=== PATIENT | female | born 1950 | race Caucasian/White ===

== ENCOUNTER → 2016-09-22 | Outpatient (CLI) | payer BC ==
[~2016-09-22] MED LIST: AMLO-110 PO; ASPI325T45 PO; BENADRYL PO; CRANPOW PO; CYAN1LOZ PO; FENO145T26 PO; FISHOIL PO; FURO-85 PO; GLIP2.5T5 PO; HYDR-3124 PO; INSDGI SC; LOSA25TA18 PO; METO50TA16 PO; MOME50SP5 NAE; TRAM-10 PO; VITAMIN C PO; ZNTT/150 PO; ZOLP5TAB PO; [UNRECOGNIZED DRUG - OTHER] PO; [UNRECOGNIZED DRUG - OTHER] PO
--- NOTE | 2016-09-22 15:48 | MAMMOGRAPHY REPORT ---
BILATERAL DIGITAL SCREENING MAMMOGRAM WITH CAD: 09/22/2016 CLINICAL HISTORY: Routine screening. Patient has no complaints. TECHNIQUE: Bilateral CC and MLO views were obtained. Current study was also evaluated with a Comput er Aided Detection (CAD) system. COMPARISON: Comparison is made to exams dated: 09/18/2015 mammogram, 09/27/2014 ultrasound, 09/27/2014 mammogram, 09/14/2014 mammogram, 09/13/2013 mammogram, and 09/08/2011 mammogram - [facility]. BREAST COMPOSITION: There are scattered areas of fibroglandular density in both breasts. FINDINGS: There are a few benign-appearing calcifications in the breasts. No suspicious mass, archi tectural distortion or cluster of microcalcifications is seen. IMPRESSION: ACR BI-RADS CATEGORY 1: NEGATIVE There is no mammographic evidence of malignancy. A 1 year screening mammogram is recommended. The p atient will receive written notification of the results. Approximately 10% of breast cancers are not detected with mammography. A negative mammographic repor t should not delay biopsy if a clinically suggestive mass is present. Miriam Burt M.D. ay/:09/22/2016 15:04:16 Residential Installer: Angelica Duran, [facility] letter sent: Normal 1/2 BI-RADS Code: ACR BI-RADS Category 1: Negative
== END | disposition home or self-care (01) ==
LOC: C.MAMM 09:40
PROVIDERS: ATTEND Family Medicine
DX: Z12.31 Encounter for screening mammogram for malignant neoplasm of breast (principal)

== ENCOUNTER → 2017-09-24 | Outpatient (CLI) | payer BC ==
[~2017-09-24] MED LIST changes: +ASPECOTC PO; -ASPI325T45 PO; +RANI150T85 PO; -ZNTT/150 PO
--- NOTE | 2017-09-24 15:33 | MAMMOGRAPHY REPORT ---
BILATERAL DIGITAL SCREENING MAMMOGRAM TOMOSYNTHESIS WITH CAD: 09/24/2017 CLINICAL HISTORY: Routine screening. Patient has no complaints. TECHNIQUE: Breast tomosynthesis in addition to standard 2D mammography was performed. Current study was also evaluated with a Computer Aided Detection (CAD) system. COMPARISON: Comparison is made to exams dated: 09/22/2016 mammogram, 09/18/2015 mammogram, 09/14/2014 ma mmogram, 09/13/2013 mammogram, 09/09/2012 mammogram, and 09/08/2011 mammogram - [facility]. BREAST COMPOSITION: There are scattered areas of fibroglandular density in both breasts. FINDINGS: No suspicious masses, calcifications, or areas of architectural distortion are noted in ei ther breast. There has been no significant interval change compared to prior exams. IMPRESSION: ACR BI-RADS CATEGORY 1: NEGATIVE There is no mammographic evidence of malignancy. A 1 year screening mammogram is recommended. The pa tient will receive written notification of the results. Approximately 10% of breast cancers are not detected with mammography. A negative mammographic report should not delay biopsy if a clinically suggestive mass is present. Annika Jarrett M.D. ah/:09/24/2017 10:43:43 Digestion Operator: Cris SANDOVAL)(Ale), [facility] letter sent: Normal 1/2 BI-RADS Code: ACR BI-RADS Category 1: Negative
== END | disposition home or self-care (01) ==
LOC: C.MAMM 10:09
PROVIDERS: ATTEND Family Medicine
DX: Z12.31 Encounter for screening mammogram for malignant neoplasm of breast (principal)

== ENCOUNTER 2024-03-18 11:47 | Inpatient (IN) ==
[2024-03-18 12:30] LABS: Appearance Urine Clear (Clear); Bacteria Urine Automated None Seen (None Seen); Bilirubin Urine Negative (Negative); Blood Urine Negative (Negative); Cast Urine Automated 0-2 /lpf (0-2); Color Urine Yellow; Epithelial Cell Urine Auto 0-2 /hpf (0-2); Glucose Urine UA Negative (Negative); Ketones Urine Negative (Negative); Leukocyte Esterase Urine Trace (Negative); Nitrite Urine Negative (Negative); Protein Urine 1+ (Negative); RBC Urine Automated 0-2 /hpf (0-2); Specific Gravity Urine 1.009 (1.000-1.030); Urobilinogen Urine Negative (Negative); WBC Urine Automated 0-5 /hpf (0-5)
[2024-03-18 12:31] LABS: Basophils # (auto) 0.06 K/uL (0.00-0.20); Basophils % (auto) 0.7 %; Eosinophils # (auto) 0.28 K/uL (0.00-0.50); Eosinophils % (auto) 3.2 %; Hematocrit (blood only) 33.4 % (37.0-47.0); Hemoglobin 11.6 g/dl (12.0-16.0); Immature Granulocytes # (auto) 0.06 K/uL (0.01-0.20); Immature Granulocytes % (auto) 0.7 %; Lymphocytes # (auto) 1.16 K/uL (1.20-3.40); Lymphocytes % (auto) 13.2 %; Mean Corpuscular Hemoglobin 30.1 pg (25.0-34.0); Mean Corpuscular Hgb Conc 34.7 g/dL (32.0-36.0); Mean Corpuscular Volume 86.8 fL (80.0-100.0); Mean Platelet Volume 9.3 fL (9.4-12.4); Monocytes # (auto) 0.73 K/uL (0.11-0.59); Monocytes % (auto) 8.3 %; Neutrophils % (auto) 73.9 %; Platelet Count 269 K/uL (130-400); RDW Coefficient of Variation 12.3 % (11.5-14.5); RDW Standard Deviation 39.1 fL (36.4-46.3); Red Blood Count 3.85 M/uL (4.20-5.40); White Blood Count 8.79 K/ul (4.8-10.8)
[2024-03-18 12:51] LABS: BUN Creatinine Ratio 13.1 (10-20); Calcium 9.5 mg/dl (8.6-10.3); Creatinine Clr Calc Pharmacy 33.1 ml/min; Potassium 3.7 mmol/L (3.5-5.1)
[2024-03-18 12:59] LABS: Magnesium 1.7 mg/dl (1.7-2.4)
--- NOTE | 2024-03-18 13:16 | History & Physical Report ---
Date of Service March 18, 2024 Assessment & Plan (1) Hyponatremia: Plan: Patient with NA of 123 likely secondary to chlorthalidone use, increased activity, and diarrhea - With muscle cramps and shakiness - with decreased chloride, not hyperglycemic - hypovolemic; clinically dry - CK elevated 505 - Serum osmol 263, Urine NA 37, Urine Osmol 229 - indicating hypotonic hyponatremia - given 500 mL bolus of NSS on admission - hold Lasix and will likely discontinue chlorthalidone on discharge - promote oral hydration - Repeat BMP in 4 hrs, trend daily - AM cortisol and TSH (2) UTI (urinary tract infection): Plan: diagnosed in ER 03/17; patient already on Keflex for sinus infection - UA showed 1+ protein, 2+ leukocyte esterase, 6-10 WBC 03/17; repeat showed no WBC likely secondary to abx use - urine culture pending - asymptomatic - continue with Keflex x 7 days (already 3 days taken) (3) Elevated creatine kinase: Plan: mild rhabdomyolysis likely secondary to increased activity and electrolyte abnormalities - mildly elevated at 505 on admission with recent muscle cramps - is on pravastatin although terminal worker use; held on admission - will likely improve with electrolyte repletion - repeat CK in AM (4) Acute kidney injury: Plan: likely secondary to UTI vs recent addition of chlorthalidone on Thursday vs dehydration - Patient stated she has stage III CKD with a baseline creatinine of 1.6, although no record of this - Cr 1.53 on admission - FENa 0.8% = prerenal; likely caused by dehydration - trend BMP - Hold nephrotoxic agents along with lasix and chlorthalidone - Patient is clinically dry with hyponatremia, IV fluid resuscitation as above - continue to promote oral hydration hypokalemia: K+ 3.7 -> 40 meq PO ordered on admission hypomagnesemia: 1.7 -> 400 mg PO on admission, continue daily 500mg supplement (5) Diabetes type 2, controlled: Plan: Controlled on glipizide, metformin, and 9 units Lantus Qam at home - no A1c on file, will add to Am labs - hold metformin-glipizide - SSI with target BSG range 110-140mg/dL, CF 30, carb ratio 10 - continue home Lantus 9 units QAM - T2DM diet (6) Hypertension: Plan: slightly elevated on admission although stable - continue home medications - losartan, metoprolol, and amlodipine - with holding home diuretics, may need to increase home medications if BP remains elevated Plan Chronic stable diagnoses: Hypothyroidism - continue levothyroxine, no TSH on file, will add to AM labs HLD - continue home statin B12 deficiency - continue home supplement sleep disorder - continue home Ambien GERD - continue famotidine VTE ppx: teds and scds Diet: DM diet Code status: full Dispo: Med/surg; PT/OT to evaluate given weakness Admission and Anticipated Discharge Date Admission Date: 03/18/24 History of Present Illness Chief Complaint: weakness Primary Care Provider: Kristen Meléndez DO patient is a 73-year-old female with a past medical history of hypertension, hyperlipidemia, type II DM, GERD, hypothyroidism, B12 deficiency, ckd. She left AMA from the ER yesterday after being diagnosed with hyponatremia and a UTI. She presents back this morning due to weakness and muscle spasms that made her unable to walk. Patient stated that 2 nights ago she woke up in the [place] sweaty, shaky, and her legs felt like rubber. She crawled to the bathroom and sat there for about 30 minutes. She said her legs were cramping this entire time. She then came to the ER, was evaluated, diagnosed with UTI and hyponatremia. She left AMA at this time. She stated she drank Gatorade throughout the evening and was feeling much better when she went to bed. Last night she woke up again with shakiness and muscle cramping. She again had to crawl to the bathroom and sat there for about 30 minutes in which she then returned back to the ER. She stated that she takes Lasix 20 mg daily and recently had an addition of chlorthalidone 12.5 mg daily, that she started on Thursday. She held that this morning because she thought it was contributing to her hyponatremia. She has been up and moving around more this week with her fridge breaking. She stated she has been on her feet for about 8 hours carrying garbage bags in and out of the house. She is supposed to drink water with electrolytes in it, but has not this week. She drinks 40 to 60 ounces of water a day. She stated she has had low sodium 2 times in the past, but they were over the summer when she was active and doing things outside, her symptoms were not as severe. She stated that she does not feel like she has UTI, she has chronic UTIs and normally has dysuria, difficulty urinating, and increase in urination. She denies all of the symptoms today. She was taking Keflex for the past 3 days due to a sinus infection, although this was also prescribed for her UTI yesterday. The Keflex has also caused her to have some diarrhea for the past 2 days. She states she has 2-3 episodes a day x 2 days. She follows with cardiology and nephrology through [facility], but her PCP is [facility]. She stated that she has stage III CKD, no history of CHF. She does have chronic lower leg edema in which she wears compression socks. She stated she recently had an echo with cardiology that was normal. Patient denies dizziness, lightheadedness, vision changes, rhinorrhea, sore throat, cough, sputum production, dyspnea, dyspnea on exertion, chest pain, abdominal pain, nausea, vomiting, dysuria, hematuria, numbness, tingling. She denies nicotine and alcohol use. She denies past history of CVA, VTE, and lung disorders. She does not use oxygen at baseline. She wishes to be full code at this time. She lives at home alone, but gets around okay. The patient was discussed with Dr. Weber at the time of the admission/consult. Allergies Allergy/AdvReac Type Severity Reaction Status Date / Time niacin Allergy Intermediate ITCHING Verified 06/03/23 09:48 lisinopril AdvReac Intermediate PERSISTENT Verified 06/03/23 09:48 COUGH oxycodone AdvReac Intermediate NAUSEA/VOMI Verified 06/03/23 09:48 TING Home Medications Medication Instructions Recorded Confirmed Type amlodipine 2.5 mg tablet 2.5 mg PO DAILY #0 tabs 07/31/12 03/18/24 History furosemide 20 mg tablet 20 mg PO DAILY ##0 07/31/12 03/18/24 History glipizide 5 mg-metformin 500 mg 2 tabs PO BID ##0 07/31/12 03/18/24 History tablet losartan 50 mg tablet 50 mg PO DAILY #0 tabs 07/31/12 03/18/24 History tramadol 50 mg tablet 50 mg PO Q8 PRN Pain #0 tabs 07/31/12 03/18/24 History zolpidem 5 mg tablet (Ambien) 5 mg PO HS #0 tabs 07/31/12 03/18/24 History cyanocobalamin (vitamin B-12) 1,000 mcg PO DAILY ##0 11/25/12 03/18/24 History CRANBERRY 1 cap PO BID ##0 05/31/13 03/18/24 History Fish Oil 1,000 mg PO DAILY ##0 05/31/13 03/18/24 History Vitamin C 1 tab PO UD ##0 05/31/13 03/18/24 History cephalexin 500 mg capsule 500 mg PO BID 7 days #14 caps 03/17/24 03/18/24 Rx Aspir-81 81 mg PO HS 03/18/24 03/18/24 History carvedilol 3.125 mg tablet 3.125 mg PO BID 03/18/24 03/18/24 History chlorthalidone 25 mg tablet 12.5 mg PO QAM 03/18/24 03/18/24 History cholecalciferol (vitamin D3) 50 50 mcg PO QAM 03/18/24 03/18/24 History mcg (2,000 unit) capsule (Vitamin D3) clobetasol 0.05 % topical cream 1 applic topical .2X WEEK 03/18/24 03/18/24 History famotidine 20 mg tablet 20 mg PO QAM 03/18/24 03/18/24 History fexofenadine 180 mg tablet 180 mg PO DAILY 03/18/24 03/18/24 History fluticasone propionate 50 1 spray intranasal BID 03/18/24 03/18/24 History mcg/actuation nasal spray,suspension insulin glargine 100 unit/mL (3 9 unit subcut QAM 03/18/24 03/18/24 History mL) subcutaneous pen (Lantus Solostar U-100 Insulin) iron,carbonyl 65 mg-vitamin C 125 1 tab PO .Q OTHER DAY 03/18/24 03/18/24 History mg tablet,delayed release (Vitron-C) levothyroxine 75 mcg tablet 75 mcg PO DAILY 03/18/24 03/18/24 History magnesium 500 mg tablet 500 mg PO PM 03/18/24 03/18/24 History pravastatin 10 mg tablet 10 mg PO HS 03/18/24 03/18/24 History Past Med/Surg History Problem List (Updated 03/18/24 @ 15:03 by Aracelis Barnes PA-C) Elevated creatine kinase Acute kidney injury Hyponatremia UTI (urinary tract infection) (Acute) Hypochloremia (Acute) Acute hyponatremia (Acute) Lichen sclerosus et atrophicus of the vulva Arthritis Hypothyroid Vulvar itching Asthma Hypertriglyceridemia Diabetes type 2, controlled Hypertension Medical History (Updated 03/18/24 @ 15:03 by Aracelis Barnes PA-C) Ovarian cyst Fibroids Endometriosis Surgical History (Updated 11/04/22 @ 10:04 by Niecy Jason MD, FACOG) S/P hysterectomy and BSO cysts, endometriosis, age 39 S/P cholecystectomy S/P tonsillectomy Family History (Updated 11/04/22 @ 10:05 by Niecy Jason MD, FACOG) Mother Myocardial infarction Family/Other Breast cancer maternal cousin Denies family history of Ovarian cancer Prostate cancer Colorectal cancer Social History Smoking Status: Never smoker Feels Safe at Home: Yes Review of Systems Review of Systems: See HPI Physical Exam Physical Exam: The patient is awake, alert and oriented 3, well developed and well nourished, normocephalic and atraumatic, in no acute distress. Non-toxic appearing. HEENT- EOMI, mucous membranes dry. Hearing grossly intact. Heart-normal S1 and S2. No murmurs, rubs or gallops. Lungs-clear bilaterally, no respiratory distress, no accessory muscle use. Abdomen-normal bowel sounds and soft. No ascites noted. Non-tender. Extremities- no clubbing, cyanosis, or edema. Rheumatologic-normal range of motion. Psychiatric-normal affect. Results & Data Results & Data Vital Signs (Past 12 Hours) Vital Signs Temp Pulse Resp BP Pulse Ox O2 Del Method 03/18/24 12:36 69 15 160/75 H 100 03/18/24 12:14 76 03/18/24 12:13 77 12 154/70 H 96 Room Air 03/18/24 11:52 36.5 C 73 18 168/75 H 98 Room Air Code Status & VTE Plan Code Status full code VTE Prophylaxis Plan VTE Prophylaxis will be ordered: Yes Supervising Physician Co-Signing Physician Notes Patient seen and examined, chart reviewed, case discussed with Aracelis Ray PA-C and I agree with the assessment and plan as above except as otherwise noted Labs and images reviewed Florian is a 73yo F who presents with hyponatremia. Takes lasix and recently started chlorthalidone. Much more physical activity than normal this week and has not been drinking electrolyte drinks she usually dose. Clinically on exam volume contracted and also with mild GABBY. Her urine sodium is mid range at 37 however she is on chlorthalidone although did not take this today level is not necessarily reliable. She is volume contracted and more concerned with hypovolemic hyponatremia with concurrent chlorthalidone use. Agree with hydra tion, holding chlorthalidone, and conservative care. Additionally patient with multiple muscle aches and pain which brought her in yesterday. She has had a lot of activity this use CK is mildly elevated consistent with mild rhabdo, will encourage hydration and trend renal function. Her statin was started a long time ago and has not changed so suspect this is not the underlying cause however will temporarily hold this in the setting of rhabdo. CK trended x 1. Agree with above. PG Care Time/CCT Total # of Minutes Spent Total Time Spent with Patient: Total time spent is greater than 50% in coordination of care (as documented) at patient's floor/unit and/or counseling patient: Coding Level of Care Code 99003 INT INP/OBS CARE 375MIN Diagnoses Hyponatremia E87.1 UTI (urinary tract infection) N39.0 Elevated creatine kinase R74.8 Acute kidney injury N17.9 Diabetes type 2, controlled E11.9 Hypertension I10
[2024-03-18] MEDS: POTASSIUM CHLORIDE CRTAB 20 MEQ TABCR PO STA (14:37)
[2024-03-18] MEDS: MAGNESIUM OXIDE 400 MG TAB PO ONE (14:37)
--- NOTE | 2024-03-18 14:59 | Emergency Department Note ---
Impression & Plan Hyponatremia, Hypochloremia ED Provider Note NAME: MERRY PASCUAL AGE: 73 SEX: F : 1950 ARRIVES VIA: Walk-In INFORMANT: Patient, ED PROVIDER(S): Lynne Jason MD CHIEF COMPLAINT: Dehydration HPI: This is a 73-year-old female presenting for weakness and bilateral arm/leg pain. Patient notes that she was here yesterday for the same. She notes the symptoms have not improved. She states she was concerned because her sodium was low yesterday. She notes no significant changes but she did slide out of bed today due to advised to walk due to the pain and weakness. She was at this time she is improved and is able to walk without pain. ROS: See above HPI for pertinent positives & negatives. A total of 10 systems reviewed and were otherwise negative. PAST MEDICAL HISTORY: See Below PAST SURGICAL HISTORY: See Below FAMILY HISTORY: See Below SOCIAL HISTORY: See Below HOME MEDICATIONS: See Below ALLERGIES: See Below VITALS: See Below PHYSICAL EXAMINATION: General: resting comfortably in no acute distress Head: Normocephalic and atraumatic Eyes: Normal inspection, extraocular muscles intact Ear, nose, throat: Normal external exam Neck: Normal range of motion Respiratory: speaking in full sentences, symmetric chest rise, no respiratory distress Cardiovascular: Regular rate/rhythm Extremities: moves all extremities Neuro: The patient awake and alert, appropriately conversive, symmetric faces, no focal deficits, cranial nerves II through XII grossly intact MEDICAL DECISION MAKING: This is a 73-year-old female present for weakness/bilateral arm/leg pain. Patient was seen by myself yesterday for similar symptoms or patient left AGAINST MEDICAL ADVICE yesterday after be diagnosed with hyponatremia as a potential etiology for her symptoms. At this time she has had no significant change she is attempted to drink fluids with electrolytes. She is comfortable with admission at this time. -Blood work is reviewed, continues to be hyponatremic to 123, downtrending from yesterday. Also showing hyponatremia -Patient care discussed Dr. Weber for admission Differential diagnosis: Hyponatremia, hypochloremia, rhabdomyolysis ER treatment provided: See below Independent History obtained from: [employer] interpreted by me: ECG: None Cardiac Monitoring: An order was placed for continuous cardiac monitoring. The monitor shows a rate of 77 with sinus rhythm. Laboratory studies: As stated above and show below. Imaging studies: See below. Past Med/Surg History Problem List (Updated 03/18/24 @ 18:14 by Lynne Jason MD) Elevated creatine kinase Acute kidney injury Hyponatremia (Acute) UTI (urinary tract infection) (Acute) Hypochloremia (Acute) Acute hyponatremia (Acute) Lichen sclerosus et atrophicus of the vulva Arthritis Hypothyroid Vulvar itching Asthma Hypertriglyceridemia Diabetes type 2, controlled Hypertension Medical History (Updated 03/18/24 @ 18:14 by Lynne Jason MD) Ovarian cyst Fibroids Endometriosis Surgical History (Updated 11/04/22 @ 10:04 by Niecy Jason MD, FACOG) S/P hysterectomy and BSO cysts, endometriosis, age 39 S/P cholecystectomy S/P tonsillectomy Family History (Updated 11/04/22 @ 10:05 by Niecy Jason MD, FACOG) Mother Myocardial infarction Family/Other Breast cancer maternal cousin Denies family history of Ovarian cancer Prostate cancer Colorectal cancer Social History Smoking Status: Never smoker Hx Alcohol Use: Yes Hx Substance Use: No Communication Ability: Effective Current Living Situation: Alone Feels Safe at Home: Yes Assistive Devices: Hospital Bed Allergies Allergies Allergy/AdvReac Type Severity Reaction Status Date / Time niacin Allergy Intermediate ITCHING Verified 06/03/23 09:48 lisinopril AdvReac Intermediate PERSISTENT Verified 06/03/23 09:48 COUGH oxycodone AdvReac Intermediate NAUSEA/VOMI Verified 06/03/23 09:48 TING Home Meds Home Medications Medication Instructions Recorded Confirmed amlodipine 2.5 mg tablet 2.5 mg PO DAILY #0 tabs 07/31/12 03/18/24 furosemide 20 mg tablet 20 mg PO DAILY ##0 07/31/12 03/18/24 glipizide 5 mg-metformin 500 mg 2 tabs PO BID ##0 07/31/12 03/18/24 tablet losartan 50 mg tablet 50 mg PO DAILY #0 tabs 07/31/12 03/18/24 tramadol 50 mg tablet 50 mg PO Q8 PRN Pain #0 tabs 07/31/12 03/18/24 zolpidem 5 mg tablet (Ambien) 5 mg PO HS #0 tabs 07/31/12 03/18/24 cyanocobalamin (vitamin B-12) 1,000 mcg PO DAILY ##0 11/25/12 03/18/24 CRANBERRY 1 cap PO BID ##0 05/31/13 03/18/24 Fish Oil 1,000 mg PO DAILY ##0 05/31/13 03/18/24 Vitamin C 1 tab PO UD ##0 05/31/13 03/18/24 Aspir-81 81 mg PO HS 03/18/24 03/18/24 carvedilol 3.125 mg tablet 3.125 mg PO BID 03/18/24 03/18/24 chlorthalidone 25 mg tablet 12.5 mg PO QAM 03/18/24 03/18/24 cholecalciferol (vitamin D3) 50 50 mcg PO QAM 03/18/24 03/18/24 mcg (2,000 unit) capsule (Vitamin D3) clobetasol 0.05 % topical cream 1 applic topical .2X WEEK 03/18/24 03/18/24 famotidine 20 mg tablet 20 mg PO QAM 03/18/24 03/18/24 fexofenadine 180 mg tablet 180 mg PO DAILY 03/18/24 03/18/24 fluticasone propionate 50 1 spray intranasal BID 03/18/24 03/18/24 mcg/actuation nasal spray,suspension insulin glargine 100 unit/mL (3 9 unit subcut QA 03/18/24 03/18/24 mL) subcutaneous pen (Lantus Solostar U-100 Insulin) iron,carbonyl 65 mg-vitamin C 125 1 tab PO .Q OTHER DAY 03/18/24 03/18/24 mg tablet,delayed release (Vitron-C) levothyroxine 75 mcg tablet 75 mcg PO DAILY 03/18/24 03/18/24 magnesium 500 mg tablet 500 mg PO PM 03/18/24 03/18/24 pravastatin 10 mg tablet 10 mg PO HS 03/18/24 03/18/24 Previous Rx's Medication Instructions Recorded cephalexin 500 mg capsule 500 mg PO BID 7 days #14 caps 03/17/24 Results & Data (ED) Vital Signs Vital Signs - 24 hr 03/18/24 11:52 03/18/24 12:13 03/18/24 12:14 Temperature 36.5 C Temperature Source Temporal Artery Scan Pulse Rate 73 77 76 Pulse Rate from SpO2 Sensor Respiratory Rate 18 12 Respiratory Effort / Characteristics Non-Labored Spontaneous Respiratory Depth Normal Blood Pressure 168/75 H 154/70 H Blood Pressure Mean 106 98 Pulse Oximetry 98 96 Oxygen Delivery Method Room Air Room Air Sepsis Recent Fever Within 48 Hours No Sepsis New/Unexplained Change in Mental Status No Sepsis Action Taken by Nursing No Action Required 03/18/24 12:36 03/18/24 13:36 Temperature Temperature Source Pulse Rate 69 80 Pulse Rate from SpO2 Sensor 68 Respiratory Rate 15 18 Respiratory Effort / Characteristics Respiratory Depth Blood Pressure 160/75 H 158/67 H Blood Pressure Mean 103 97 Pulse Oximetry 100 98 Oxygen Delivery Method Sepsis Recent Fever Within 48 Hours Sepsis New/Unexplained Change in Mental Status Sepsis Action Taken by Nursing Laboratory Data 03/18/24 12:04 03/18/24 12:04 Lab Results 03/18/24 03/18/24 Range/Units 12:02 12:04 WBC 8.79 (4.8-10.8) K/ul RBC 3.85 L (4.20-5.40) M/uL Hgb 11.6 L (12.0-16.0) g/dl Hct 33.4 L (37.0-47.0) % MCV 86.8 (80.0-100.0) fL MCH 30.1 (25.0-34.0) pg MCHC 34.7 (32.0-36.0) g/dL RDW Std Deviation 39.1 (36.4-46.3) fL RDW Coeff of Joao 12.3 (11.5-14.5) % Plt Count 269 (130-400) K/uL MPV 9.3 L (9.4-12.4) fL Immature Gran % (Auto) 0.7 % Neut % (Auto) 73.9 % Lymph % (Auto) 13.2 % Mathews % (Auto) 8.3 % Eos % (Auto) 3.2 % Baso % (Auto) 0.7 % Neut # (Auto) 6.50 (1.40-6.50) K/uL Lymph # (Auto) 1.16 L (1.20-3.40) K/uL Mathews # (Auto) 0.73 H (0.11-0.59) K/uL Eos # (Auto) 0.28 (0.00-0.50) K/uL Baso # (Auto) 0.06 (0.00-0.20) K/uL Immature Gran # (Auto) 0.06 (0.01-0.20) K/uL Sodium 123 L (136-145) mmol/L Potassium 3.7 (3.5-5.1) mmol/L Chloride 87 L (98-107) mmol/L Carbon Dioxide 26 (21-32) mmol/L Anion Gap 10 (3-11) BUN 20 (6-23) mg/dl Creatinine 1.53 H (0.6-1.2) mg/dl Est Cr Clr Drug Dosing 33.1 ml/min eGFR 36.16 BUN/Creatinine Ratio 13.1 (10-20) Glucose 144 H (70-99(Fasting)) mg/dl Calcium 9.5 (8.6-10.3) mg/dl Magnesium 1.7 (1.7-2.4) mg/dl Total Creatine Kinase 505 H (26-192) U/L Urine Color Yellow Urine Appearance Clear (Clear) Urine pH 6.0 (4.5-7.5) Ur Specific [place] 1.009 (1.000-1.030) Urine Protein 1+ H (Negative) Urine Glucose (UA) Negative (Negative) Urine Ketones Negative (Negative) Urine Blood Negative (Negative) Urine Nitrite Negative (Negative) Urine Bilirubin Negative (Negative) Urine Urobilinogen Negative (Negative) Ur Leukocyte Esterase Trace H (Negative) Urine WBC (Auto) 0-5 (0-5) /hpf Urine RBC (Auto) 0-2 (0-2) /hpf U Hyaline Cast (Auto) 0-2 (0-2) /lpf U Epithel Cells (Auto) 0-2 (0-2) /hpf Urine Bacteria (Auto) None Seen (None Seen) Urine Osmolality 229 L (500-800) mOsm/kg Ur Random Creatinine 60.9 mg/dl Ur Random Sodium 37 mmol/L Administered Medications Discontinued Medications Magnesium Oxide (Magnesium Oxide 400 Mg Tab) 400 mg PO ONCE ONE Stop: 03/18/24 14:27 Last Admin: 03/18/24 14:37 Dose: 400 mg Documented By: ANT Potassium Chloride (Potassium Chloride Crtab 20 Meq Tabcr) 40 meq PO NOW STA Stop: 03/18/24 14:27 Last Admin: 03/18/24 14:37 Dose: 40 meq Documented By: ANT Discharge Plan Visit Data Chief Complaint: Weakness Stated Complaint: WEAK LEGS WHEN SLEEPING ED Provider: Lynne Jason Discharge Problem: Hyponatremia, Hypochloremia Patient Disposition: Admitted As Inpatient Discharge Instructions Interventions: ED Discharge Assessment Last Done: 03/18/24 17:00
[2024-03-18] MEDS ORDERED: DOCUSATE SODIUM 100 MG CAP PO PRN (17:49)
[2024-03-18] MEDS ORDERED: ACETAMINOPHEN 325 MG TAB PO PRN (17:49)
[2024-03-18] MEDS ORDERED: GLUCAGON FOR INJ 1 MG VIAL SQ PRN (17:49)
[2024-03-18] MEDS ORDERED: traMADol HCL 50 MG TABLET PO PRN (17:49)
[2024-03-18] MEDS ORDERED: GLUCOSE 40% GEL 15 GM TUBE PO PRN (17:49)
[2024-03-18] MEDS ORDERED: GLUCOSE 10 TAB/TUBE PO PRN (17:49)
[2024-03-18] MEDS ORDERED: CARBOHYDRATES FOR HYPOGLYCEMIA PO PRN (17:49)
[2024-03-18] MEDS ORDERED: DEXTROSE 50% 50 ML SYRINGE IV PRN (17:49)
[2024-03-18] MEDS: SODIUM CHLORIDE 0.9% 500 ML IV ONE (18:36)
[2024-03-18] MEDS: INSULIN ASPART PER UNIT CHARGE SC SCH (19:01)
[2024-03-18] MEDS: carvediloL 3.125 MG TAB PO SCH (21:04)
[2024-03-18] MEDS: MAGNESIUM OXIDE 400 MG TAB PO SCH (21:04)
[2024-03-18] MEDS: cephALEXin 500 MG CAP PO SCH (21:04)
[2024-03-18] MEDS: ASPIRIN 81 MG ECTAB PO SCH (21:05)
[2024-03-18] MEDS: ZOLPIDEM TARTRATE 5 MG TAB PO SCH (23:02)
[2024-03-19] MEDS: LEVOTHYROXINE SODIUM 75 MCG TABLET PO SCH (05:48)
[2024-03-19 07:26] LABS: Hematocrit (blood only) 32.1 % (37.0-47.0); Hemoglobin 11.1 g/dl (12.0-16.0); Mean Corpuscular Hemoglobin 29.9 pg (25.0-34.0); Mean Corpuscular Hgb Conc 34.6 g/dL (32.0-36.0); Mean Corpuscular Volume 86.5 fL (80.0-100.0); Mean Platelet Volume 9.1 fL (9.4-12.4); Platelet Count 256 K/uL (130-400); RDW Coefficient of Variation 12.5 % (11.5-14.5); RDW Standard Deviation 39.5 fL (36.4-46.3); Red Blood Count 3.71 M/uL (4.20-5.40); White Blood Count 7.68 K/ul (4.8-10.8)
[2024-03-19 07:31] LABS: Estimated Average Glucose 148 mg/dl; Hemoglobin A1C 6.8 % (4.5-5.6)
[2024-03-19 07:45] LABS: BUN Creatinine Ratio 15.2 (10-20); Calcium 9.6 mg/dl (8.6-10.3); Potassium 4.1 mmol/L (3.5-5.1)
--- NOTE | 2024-03-19 07:58 | Hospitalist Progress Note ---
Date of Service March 19, 2024 Assessment & Plan (1) Hyponatremia: Plan: likely in the setting of hypovolemia resolved: 123 -> 131 this morning no longer having extremity pain or cramping continue PO meals and hydration as tolerated - plan to discontinue chlorthalidone and remain on lasix upon discharge, but to follow up with office machine mechanic outpatient (2) Elevated creatine kinase: Plan: resolvin -> 210 this morning no longer having ext pain or cramping continue PO meals and hydration as tolerated (3) Acute kidney injury: Plan: on CKD state III with baseline creatinine 1.6 creatinine 1.58 as of this morning discontinue chlorthalidone, resume Lasix upon discharge but to follow up soon with nephro outpatient (4) UTI (urinary tract infection): Plan: UA showing trace leuks, WBCs have resolved to 0-5 continue on Keflex 7 day course which was originally prescribed for a sinus infection Admission and Anticipated Discharge Date Admission Date: March 18, 2024 Subjective Patient was seen this morning at bedside, VSS. Overnight, patient states she couldn't sleep very well since her roommate was snoring loud due to refusal of CPAP. This morning, patient is feeling overall much better than she did yesterday. Denies any pain in extremities. Has been ambulating without issue and using bathroom. Notes she had diarrhea 2 days ago, no bowel movement since then. Thinks it's because she's on keflex. Denies any fever, body aches, chills, sweats, headache, dizziness, lightheadedness, SOB, chest pain, abdominal pain, pain/swelling of extremities, numbness/tingling of extremities. Review of Systems Review of Systems: per HPI Physical Exam Physical Exam: Constitutional: A&Ox4, appears stated age, in no acute distress HEENT: NC/AT, EOM intact, anicteric sclerae Cardiovascular: RRR, +s1/s2, no murmurs/rubs/gallops Respiratory: clear to auscultation b/l, good equal air entry, no wheezes/rales/rhonchi GI: abdomen soft, +BS, nontender to palpation MSK: no tenderness of extremities, no swelling/tenseness/erythema/ecchymosis of extremities; 5/5 strength in all extremities Neuro: no facial droop, good eye contact, no speech or hearing deficits, no tremors or abnormal movements seen in extremities Results & Data Results & Data Vital Signs (Past 12 Hours) Vital Signs Temp Pulse Resp BP Pulse Ox O2 Del Method 03/19/24 07:04 36.6 C 63 18 158/76 H 98 Room Air 03/18/24 21:14 36.7 C 69 16 131/73 98 Room Air Laboratory Results Abnormal lab results 03/18/24 03/18/24 03/18/24 Range/Units 12:04 14:37 18:16 RBC 3.85 L (4.20-5.40) M/uL Hgb 11.6 L (12.0-16.0) g/dl Hct 33.4 L (37.0-47.0) % MPV 9.3 L (9.4-12.4) fL Lymph # (Auto) 1.16 L (1.20-3.40) K/uL [place] # (Auto) 0.73 H (0.11-0.59) K/uL Sodium 123 L (136-145) mmol/L Chloride 87 L (98-107) mmol/L BUN (6-23) mg/dl Creatinine 1.53 H (0.6-1.2) mg/dl Glucose 144 H (70-99(Fasting)) mg/dl POC Glucose 58 L* (70-99) mg/dl Hemoglobin A1c (4.5-5.6) % Osmolality 263 L (280-300) mOsm/kg Total Creatine Kinase 505 H (26-192) U/L Urine Protein 1+ H (Negative) Ur Leukocyte Esterase Trace H (Negative) Urine Osmolality 229 L (500-800) mOsm/kg 03/18/24 03/18/24 03/19/24 Range/Units 18:18 21:09 07:05 RBC (4.20-5.40) M/uL Hgb (12.0-16.0) g/dl Hct (37.0-47.0) % MPV (9.4-12.4) fL Lymph # (Auto) (1.20-3.40) K/uL [place] # (Auto) (0.11-0.59) K/uL Sodium 131 L (136-145) mmol/L Chloride 96 L (98-107) mmol/L BUN 24 H (6-23) mg/dl Creatinine 1.58 H (0.6-1.2) mg/dl Glucose (70-99(Fasting)) mg/dl POC Glucose 67 L* 110 H (70-99) mg/dl Hemoglobin A1c (4.5-5.6) % Osmolality (280-300) mOsm/kg Total Creatine Kinase 210 H (26-192) U/L Urine Protein (Negative) Ur Leukocyte Esterase (Negative) Urine Osmolality (500-800) mOsm/kg 03/19/24 Range/Units 07:06 RBC 3.71 L (4.20-5.40) M/uL Hgb 11.1 L (12.0-16.0) g/dl Hct 32.1 L (37.0-47.0) % MPV 9.1 L (9.4-12.4) fL Lymph # (Auto) (1.20-3.40) K/uL [place] # (Auto) (0.11-0.59) K/uL Sodium (136-145) mmol/L Chloride (98-107) mmol/L BUN (6-23) mg/dl Creatinine (0.6-1.2) mg/dl Glucose (70-99(Fasting)) mg/dl POC Glucose (70-99) mg/dl Hemoglobin A1c 6.8 H (4.5-5.6) % Osmolality (280-300) mOsm/kg Total Creatine Kinase (26-192) U/L Urine Protein (Negative) Ur Leukocyte Esterase (Negative) Urine Osmolality (500-800) mOsm/kg Resident Activity Tracking Resident Involvement: Resident Care Provided Care Provided: Adult Hospital Medicine (4) UTI (urinary tract infection) Indwelling urinary catheter type: unspecified
[2024-03-19 07:59] LABS: Thyroid Stimulating Hormone 1.865 uIu/ml (0.300-4.500)
[2024-03-19] MEDS: LOSARTAN POTASSIUM 50 MG TAB PO SCH (09:00)
[2024-03-19] MEDS: amLODIPine BESYLATE 5 MG TAB PO SCH (09:02)
[2024-03-19] MEDS: FAMOTIDINE 20 MG TAB PO SCH (09:03)
[2024-03-19] MEDS: CYANOCOBALAMIN (B-12) 500 MCG TABLET PO SCH (09:03)
[2024-03-19] MEDS: CHOLECALCIFEROL 25 MCG (1000 UNITS) TAB PO SCH (09:04)
[2024-03-19] MEDS: LANTUS PER UNIT CHARGE SQ SCH (09:17)
[2024-03-19 12:32] VITALS: BP 138/70; PULSE 67; RESP 16; TEMP 98.1; O2SAT 94
--- NOTE | 2024-03-19 13:51 | Discharge Summary ---
Date of Service March 19, 2024 Admission HPI Per Admitting Provider patient is a 73-year-old female with a past medical history of hypertension, hyperlipidemia, type II DM, GERD, hypothyroidism, B12 deficiency, ckd. She left AMA from the ER yesterday after being diagnosed with hyponatremia and a UTI. She presents back this morning due to weakness and muscle spasms that made her unable to walk. Patient stated that 2 nights ago she woke up in the [place] sweaty, shaky, and her legs felt like rubber. She crawled to the bathroom and sat there for about 30 minutes. She said her legs were cramping this entire time. She then came to the ER, was evaluated, diagnosed with UTI and hyponatremia. She left AMA at this time. She stated she drank Gatorade throughout the evening and was feeling much better when she went to bed. Last night she woke up again with shakiness and muscle cramping. She again had to crawl to the bathroom and sat there for about 30 minutes in which she then returned back to the ER. She stated that she takes Lasix 20 mg daily and recently had an addition of chlorthalidone 12.5 mg daily, that she started on Thursday. She held that this morning because she thought it was contributing to her hyponatremia. She has been up and moving around more this week with her fridge breaking. She stated she has been on her feet for about 8 hours carrying garbage bags in and out of the house. She is supposed to drink water with electrolytes in it, but has not this week. She drinks 40 to 60 ounces of water a day. She stated she has had low sodium 2 times in the past, but they were over the summer when she was active and doing things outside, her symptoms were not as severe. She stated that she does not feel like she has UTI, she has chronic UTIs and normally has dysuria, difficulty urinating, and increase in urination. She denies all of the symptoms today. She was taking Keflex for the past 3 days due to a sinus infection, although this was also prescribed for her UTI yesterday. The Keflex has also caused her to have some diarrhea for the past 2 days. She states she has 2-3 episodes a day x 2 days. She follows with cardiology and nephrology through [facility], but her PCP is [facility]. She stated that she has stage III CKD, no history of CHF. She does have chronic lower leg edema in which she wears compression socks. She stated she recently had an echo with cardiology that was normal. Patient denies dizziness, lightheadedness, vision changes, rhinorrhea, sore throat, cough, sputum production, dyspnea, dyspnea on exertion, chest pain, abdominal pain, nausea, vomiting, dysuria, hematuria, numbness, tingling. She denies nicotine and alcohol use. She denies past history of CVA, VTE, and lung disorders. She does not use oxygen at baseline. She wishes to be full code at this time. She lives at home alone, but gets around okay. The patient was discussed with Dr. Weber at the time of the admission/consult. Admission Exam Per Admitting Provider The patient is awake, alert and oriented 3, well developed and well nourished, normocephalic and atraumatic, in no acute distress. Non-toxic appearing. HEENT- EOMI, mucous membranes dry. Hearing grossly intact. Heart-normal S1 and S2. No murmurs, rubs or gallops. Lungs-clear bilaterally, no respiratory distress, no accessory muscle use. Abdomen-normal bowel sounds and soft. No ascites noted. Non-tender. Extremities- no clubbing, cyanosis, or edema. Rheumatologic-normal range of motion. Psychiatric-normal affect. Principal Diagnosis hyponatremia, hypovolemic Discharge Exam Constitutional: A&Ox4, appears stated age, in no acute distress HEENT: NC/AT, EOM intact, anicteric sclerae Cardiovascular: RRR, +s1/s2, no murmurs/rubs/gallops Respiratory: clear to auscultation b/l, good equal air entry, no wheezes/rales/rhonchi GI: abdomen soft, +BS, nontender to palpation MSK: no tenderness of extremities, no swelling/tenseness/erythema/ecchymosis of extremities; 5/5 strength in all extremities Neuro: no facial droop, good eye contact, no speech or hearing deficits, no tremors or abnormal movements seen in extremities Discharge Data Allergies Allergy/AdvReac Type Severity Reaction Status Date / Time niacin Allergy Intermediate ITCHING Verified 06/03/23 09:48 lisinopril AdvReac Intermediate PERSISTENT Verified 06/03/23 09:48 COUGH oxycodone AdvReac Intermediate NAUSEA/VOMI Verified 06/03/23 09:48 TING Consultations 03/18/24 13:45 ED Decision to Admit Stat Hospital Course (1) Hyponatremia: likely in the setting of hypovolemia resolved: 123 -> 131 this morning no longer having extremity pain or cramping continue PO meals and hydration - plan to discontinue chlorthalidone and remain on lasix upon discharge, but to follow up soon with PCP Dr. Meléndez - consider nephrology and/or cardiology followup outpatient (2) Elevated creatine kinase: in the setting of heavy lifting and increased strenuous activity resolvin -> 210 this morning no longer having ext pain or cramping continue PO meals and hydration as tolerated (3) Acute kidney injury: on CKD state III with baseline creatinine 1.6 creatinine 1.58 as of this morning discontinue chlorthalidone, resume Lasix upon discharge but to follow up soon with PCP Dr. Meléndez - [facility] followup outpatient (4) UTI (urinary tract infection): UA showing trace leuks, WBCs have resolved to 0-5 continue on Keflex 7 day course which was originally prescribed for a sinus infection Total Time Total Time Spent Total Time Spent (In Minutes): <30 Discharge Plan Discharge Items Patient Disposition: Home - Self-Care Reason For Visit: HYPONATREMIA Discharge Diagnosis: hypovolemic hyponatremia Activity: Per Instructions section Lifting: Gradually increase as tolerated Non-emergency contact: Primary Care Provider Call non-emergency contact if: your symptoms worsen and your pain is not controlled Follow-up/Referrals: Kristen Meléndez, [Primary Care Provider] - Diet: Carb Consistent or DM2 Addtl Attending Provider Instructions: You were treated at [facility] for hyponatremia (low sodium) likely due to dehydration resulting in hypovolemia (low blood volume). You received a CT scan of your head prior to admission which was negative for an y concerning features. We have normalized your electrolyte abnormalities by way of IV fluids and electrolyte repletion, and accordingly your extremity pain and cramping have resolved. Your creatine kinase (a product of muscle breakdown) is downtrending as a result of decreased strenuous activity and adequate hydration. We are discontinuing your chlorthalidone (thiazide diuretic) as this may have c ontributed to your low sodium levels. Please discuss this change with your PCP, Dr. Meléndez, at your upcoming appointment. You may continue on your Lasix (furosemide) upon discharge, but also to discuss with Dr. Meléndez. Consider nephrology and cardiology followup per discussion with PCP. Try to avoid heavy lifting or strenuous activity, and ensure you are continuing to hydrate and eat well. Pending Studies at Discharge: No Stand-Alone Forms: My [facility], Smoking Cessation Medications and DC Order Prescriptions: Continued zolpidem [Ambien] 5 mg Tablet 5 mg PO HS Qty: 0 amlodipine 2.5 mg Tablet 2.5 mg PO DAILY Qty: 0 furosemide 20 mg Tablet 20 mg PO DAILY Qty: 0 glipizide-metformin 5-500 mg Tablet 2 tabs PO BID Qty: 0 losartan 50 mg Tablet 50 mg PO DAILY Qty: 0 tramadol 50 mg Tablet 50 mg PO Q8 PRN (Reason: Pain) Qty: 0 Patient Comments: PRN PAIN Rx Instructions: pt very rarely uses the medication cyanocobalamin (vitamin B-12) 100 MCG tablet 1,000 mcg PO DAILY Qty: 0 CRANBERRY POW 1 cap PO BID Qty: 0 Fish Oil 1,000 mg PO DAILY Qty: 0 Vitamin C 1 tab PO UD Qty: 0 Rx Instructions: isnt taking this as much currently where she takes Vitron-C cephalexin 500 mg capsule 500 mg PO BID 7 Days Qty: 14 0RF carvedilol 3.125 mg tablet 3.125 mg PO BID levothyroxine 75 mcg Tablet 75 mcg PO DAILY pravastatin 10 mg Tablet 10 mg PO HS magnesium 500 mg Tablet 500 mg PO PM fluticasone propionate 50 mcg/actuation [place],Suspension 1 spray INTRANASAL BID Rx Instructions: administer into each nostril cholecalciferol (vitamin D3) [Vitamin D3] 50 mcg (2,000 unit) Capsule 50 mcg PO QAM Vitron-C 65 mg iron- 125 mg Tablet,Delayed Release (Dr/Ec) 1 tab PO .Q OTHER DAY Aspir-81 81 mg PO HS clobetasol 0.05 % cream 1 applic topical .2X WEEK Rx Instructions: 1 applic topically as directed; fexofenadine 180 mg Tablet 180 mg PO DAILY famotidine 20 mg Tablet 20 mg PO QAM insulin glargine [Lantus Solostar U-100 Insulin] 100 unit/mL (3 mL) insulin pen 9 unit SUBCUT QAM Discontinued chlorthalidone 25 mg tablet 12.5 mg PO QAM Discharge Orders: Discharge Order (Routine); Ordered 03/19/24 Ordered By: Roman Flores/Other Patient Handouts: Hyponatremia Dc, ED Dehydration (Adult) Admission Data Admit Date/Time: 03/18/24 14:37 Attending Provider: Duong Bojorquez Admit Provider: Peter Weber Primary Care Provider: Kristen Meléndez Other Providers: Peter Weber Other Interventions: Discharge Summary Assessment (RN) Last Done: 03/19/24 14:17 Supervising Physician Co-Signing Physician Notes I personally examined the patient and verified all matson points of history and exam, discussed case, and agree with decision making with Dr Benítez feeling better would like to go home. no CHF hx vitals noted nad heent nc at mmm trace b/l LE edema and venous stasis changes hyponatremic dehydration - loop + thiazide + exertion + inadequate PO intake. improved. safe for home. stop thiazide indefinitely. discussed dangers of using a diuretic for venous stasis. close PCP f/u.
--- NOTE | 2024-03-19 17:22 | Billing Data ---
Date of Service March 19, 2024 Coding Level of Care Code 84473 IN/OBS DISCH 30 MIN/LESS
== END 2024-03-19 15:50 | disposition home or self-care (01) | DRG 641 ==
LOC: ED 11:47 → 3N 14:37 → SUATTDRO 14:37 → 3N 17:00